=== PATIENT | male | born 1975 | race African-American/Black ===

== ENCOUNTER 2018-04-15 09:50 | Emergency (ER) | payer SELFPAY ==
[2018-04-15 10:06] VITALS: BP 129/80; PULSE 74; TEMP 98.5; BMI 27.3
--- NOTE | 2018-04-15 11:15 | PDOC ---
History of Present Illness - General Chief Complaint: Pain, Acute Stated Complaint: LT ARM NUMBNESS Time Seen by Provider: 04/15/18 10:47 History Source: Patient Exam Limitations: No Limitations - History of Present Illness Initial Comments: 04/15/18 11:17 Patient came for evaluation of intermittent left arm pain and some numbness. States onset was a proximally 2-3 months ago and has progressively worsened since that time. States goes to the gym and performs heavy lifting/pushups and pull ups and wonders if he may have hurt his shoulder/arm at the gym. 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 Patient denies any known injury but has had an increase in exercise. Denies fever, denies any chest pain , palpitations, history of cardiac disease. Denies any respiratory or GI illness. Has used ibuprofen with some intermittent resolved. Pain Location: reports: back, neck, upper extremity (left arm) Modifying Factors: improves with: None Loss of Consciousness: no loss of consciousness Associated Symptoms (Fall): denies symptoms Past History - Travel Traveled outside of the country in the last 30 days: No Close contact w/someone who was outside of country & ill: No - Past Medical History Allergies/Adverse Reactions: Allergies Allergy/AdvReac Type Severity Reaction Status Date / Time No Known Allergies Allergy Verified 04/15/18 10:08 Home Medications: Ambulatory Orders Cyclobenzaprine HCl 10 mg PO Q8H PRN #14 tablet 04/15/18 Naproxen [Naprosyn -] 500 mg PO BID #30 tablet 04/15/18 COPD: No - Immunization History Immunization Up to Date: Yes - Suicide/Smoking/Psychosocial Hx Smoking History: Never smoked Hx Alcohol Use: No Drug/Substance Use Hx: Yes Review of Systems - Review of Systems Able to Perform ROS?: Yes Is the patient limited Togolese proficient: Yes Constitutional: Yes: Symptoms Reported, Malaise Respiratory: Yes: See HPI. No: Symptoms reported Musculoskeletal: Yes: Symptoms Reported, See HPI, Joint Swelling, Muscle Pain. No: Muscle Weakness Integumentary: Yes: See HPI. No: Symptoms Reported, Bruising All Other Systems: Reviewed and Negative *Physical Exam - Vital Signs Last Vital Signs Temp Pulse Resp BP Pulse Ox 98.5 F 74 16 129/80 96 04/15/18 10:04 04/15/18 10:04 04/15/18 10:04 04/15/18 10:04 04/15/18 10:04 - Physical Exam General Appearance: Yes: Nourished, Appropriately Dressed HEENT: positive: LETY, Normal ENT Inspection, TMs Normal, Pharynx Normal Neck: positive: Supple, Other (patient left arm pain reproduced with deep palpation of left aspect of trapezius musculature at scaphoid wearing. Has strong abduction and forward flexion against resistance which Apter contraction and relaxation of those muscle groups reproduces the pain to his arm again. Has strong grasp, flexion and extension of fingers, neurovascular intact to hand). negative: Tender, Tender midline Respiratory/Chest: positive: Lungs Clear, Normal Breath Sounds. negative: Chest Tender Gastrointestinal/Abdominal: positive: Soft. negative: Tender Extremity: positive: Normal Capillary Refill, Normal Inspection, Normal Range of Motion. 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 NML intact, Fully Oriented, Alert, Normal Mood/ Affect, Normal Response, Motor Strength 5/5 Moderate Sedation - Procedure Monitoring Vital Signs: Procedure Monitoring Vital Signs Temperature 98.5 F 04/15/18 10:04 Pulse Rate 74 04/15/18 10:04 Respiratory Rate 16 04/15/18 10:04 Blood Pressure 129/80 04/15/18 10:04 O2 Sat by Pulse Oximetry (%) 96 04/15/18 10:04 ED Treatment Course - RADIOLOGY Radiology Studies Ordered: Category Date Time Status SPINE-CERVICAL [RAD] Stat Radiology 04/15/18 11:05 Ordered Progress Note - Progress Note Progress Note: Cervical muscle tension with radiculopathy *DC/Admit/Observation/Transfer Diagnosis at time of Disposition: Radiculopathy of arm - Discharge Dispostion Disposition: HOME Condition at time of disposition: Stable Decision to Admit order: No - Prescriptions Prescriptions: Cyclobenzaprine HCl 10 mg PO Q8H PRN #14 tablet PRN Reason: spasm Naproxen [Naprosyn -] 500 mg PO BID #30 tablet - Referrals - Patient Instructions Printed Discharge Instructions: DI for Cervical Radiculopathy Additional Instructions: Rest, ice to area on and off for 15 minutes 4-6 times a day Avoid heavy lifting or exercise until pain and swelling is resolved or until further directed Keep area highly elevated to reduce swelling Followup with orthopedist in one to 2 days if not improving, if significantly improved may wait one week for followup with orthopedist Follow-up with neurologist if symptoms persist or worsen May use ibuprofen 2-200 mg tablets every 6 hours as needed for pain Cyclobenzaprine 110 milligrams tablet every 8 hours as needed for spasm , understanding whelming dizzy and sleepy - Post Discharge Activity Forms/Work/School Notes: Back to Work
== END 2018-04-15 11:35 | disposition home or self-care (01) ==
LOC: JERFT 09:50
DX: M54.12 Radiculopathy, cervical region (principal)
CPT/HCPCS: 72050-TC-FY; 99281-25

== ENCOUNTER 2018-10-23 01:34 | Emergency (ER) | payer OTHER ==
--- NOTE | 2018-10-23 02:03 | PDOC ---
History of Present Illness - General Stated Complaint: ARM INJURY Time Seen by Provider: 10/23/18 02:02 Past History - Past Medical History Allergies/Adverse Reactions: Allergies Allergy/AdvReac Type Severity Reaction Status Date / Time No Known Allergies Allergy Verified 10/23/18 02:47 Home Medications: Ambulatory Orders Cyclobenzaprine HCl 10 mg PO Q8H PRN #14 tablet 04/15/18 Naproxen [Naprosyn -] 500 mg PO BID #30 tablet 04/15/18 Cyclobenzaprine HCl [Flexeril -] 10 mg PO TID #21 tablet 10/23/18 Ibuprofen [Motrin -] 600 mg PO QID PRN #28 tablet 10/23/18 Lidocaine 5% Patch [Lidoderm -] 1 patch TP DAILY #7 patch 10/23/18 COPD: No - Immunization History Immunization Up to Date: Yes - Suicide/Smoking/Psychosocial Hx Smoking History: Never smoked Hx Alcohol Use: No Drug/Substance Use Hx: Yes Medical Decision Making - Medical Decision Making HPI: 43yo M with PMH of asthma presenting with RUE pain. 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 His fellow employee helped get the piano off his arm. Patient endorses pain in his right arm most focal to the elbow and forearm. He has swelling in the area as well. Anytime he moves his arm he feels a shooting pain in his proximal forearm. Has not taken anything for pain. Never injured that arm before. Never seen an life skills specialist. No fevers, chills, chest pain, or shortness of breath. PCP: does not remember the name ROS: Constitutional: no fever, no chills HEENT: no throat pain, no dysphagia Cardiovascular: no chest pain, no palpitations Respiratory: no cough, no shortness of breath Gastrointestinal: no abdominal pain, no nausea Genitourinary: no dysuria, no frequency Musculoskeletal: +R. arm pain, no L. arm pain Skin: no rash, no itching Neurologic: no headache, no weakness PE: General: Awake, alert, and fully oriented, in no acute distress Head: No signs of trauma Eyes: EOMI, sclera anicteric ENT: Moist mucus membranes Neck: Normal ROM, supple Lungs: Lungs clear, Normal breath sounds Cardio: Regular rhythm, S1 and S2 present Abdomen: Soft, nontender. No guarding, no rebound, no masses Extremities: L. arm: normal, distal pulse present 5/5 strength R. arm: pain upon passive and active flexion/extension of the elbow, pain upon pronation>supination, no bony deformity, mild swelling of forearm noted, no breaks in skin, distal pulse present; equal sensation when compared to Left arm ; 3/5 strength limited by pain BLE: normal, distal pulse present, 5/5 strength Normal range of motion, Distal pulses present SKIN: Warm, Dry, normal turgor Neurologic: Cranial nerves II through XII grossly intact. Normal speech ED Courses/MDM: DDX including but not limited to fracture, break, dislocation, tendon injury, ligament injury, muscle tear Flexeril Toradol Lidocaine patch Ice pack Radiographs of RUE: forearm, elbow, humerus, shoulder Radiographs without acute pathology, my impression Placed Fausto wrap on elbow Arm placed in sling Patient given instructions on R.I.C.E Discharged with orthopedic referral *DC/Admit/Observation/Transfer Diagnosis at time of Disposition: Right arm pain - Discharge Dispostion Disposition: HOME Condition at time of disposition: Stable - Prescriptions Prescriptions: Cyclobenzaprine HCl [Flexeril -] 10 mg PO TID #21 tablet Ibuprofen [Motrin -] 600 mg PO QID PRN #28 tablet PRN Reason: Pain Lidocaine 5% Patch [Lidoderm -] 1 patch TP DAILY #7 patch - Referrals Referrals: Glynn Manning DO [Staff Physician] - - Patient Instructions Printed Discharge Instructions: How To Perform RICE (Rest, Ice, Compress, Elevate), DI for Arm Pain Additional Instructions: You came into the ED for right arm pain. We took x-rays which did not show acute pathology. Prescriptions sent to your pharmacy. Take as instructed. You can take [id number] aleve or tylenol for pain. Follow the instructions on the medication bottle. Practice R.I.C.E: rest, ice, compression, elevation. A handout has been included in your paperwork with information about this. We have referred you to an orthopedist. Call and make an appointment if your pain does not improve within 72 hours. Your workup is not complete until you do so. Follow up with your primary care doctor within 72 hours to discuss this ED visit and to further assess your symptoms. Call and make an appointment. Your workup is not complete until you do so. Immediate medical attention is required if you experience: any focal numbness or weakness, coldness in your limb, or any new or concerning symptoms. If you think you are having an emergency, call for emergency medical services or present to the emergency department right away. - Post Discharge Activity Forms/Work/School Notes: Back to Work
[2018-10-23] MEDS ORDERED: KETOROLAC TROMETHAMINE 30 MG/1 ML VIAL IM ONE (02:31)
[2018-10-23] MEDS ORDERED: CYCLOBENZAPRINE HCL 10 MG TABLET (FP) PO ONE (02:31)
[2018-10-23] MEDS ORDERED: LIDOCAINE 5% TOPICAL PATCH TP ONE (02:31)
[2018-10-23] MEDS ORDERED: CYCLOBENZAPRINE HCL 10 MG TABLET (FP) ONE (02:42)
[2018-10-23] MEDS ORDERED: KETOROLAC TROMETHAMINE 30 MG/1 ML VIAL ONE (02:43)
[2018-10-23] MEDS ORDERED: LIDOCAINE 5% TOPICAL PATCH ONE (02:43)
--- NOTE | 2018-10-23 02:46 | PDOC ---
Attending Attestation - Resident Resident Name: Melida Patrick - ED Attending Attestation I have performed the following: I have examined & evaluated the patient, The case was reviewed & discussed with the resident, I agree w/resident's findings & plan - HPI HPI: 10/23/18 03:48 Pt had a piano slip on his right arm. 10/23/18 05:47 No bicep deformity and no forearm deformity. - Physicial Exam PE: 10/23/18 05:48 Pt is able to flex and extend his affected right arm. He is able to supinate and pronate. He has pain that runs along his tendons and muscles. He has no bleeding or bruising under his skin. Pt has no other complaints. Agree with residet exam. - Medical Decision Making 10/23/18 05:47 Home with nsaids and ice and sling and manuel wrap for comfort. Pt can follow with PMD and or with ortho as needed.
[2018-10-23 02:51] VITALS: BP 138/79; PULSE 76; TEMP 98.2; BMI 24.4
[2018-10-23] MEDS ORDERED: LIDOCAINE PATCH REMOVAL MC SCH (22:00)
== END 2018-10-23 03:50 | disposition home or self-care (01) ==
LOC: JER 01:34
PROC: 3E0233Z Introduction of Anti-inflammatory into Muscle, Percutaneous Approach (ICD-10-PCS; principal; 2018-10-23)
DX: M79.601 Pain in right arm (principal); J45.909 Unspecified asthma, uncomplicated; W20.8XXA Other cause of strike by thrown, projected or falling object, initial encounter; Y93.89 Activity, other specified; Y92.89 Other specified places as the place of occurrence of the external cause; Y99.0 Civilian activity done for income or pay
CPT/HCPCS: 73030-TC-RT-FY; 73060-TC-RT-FY; 73070-TC-RT-FY; 73090-TC-RT-FY; 99282-25

== ENCOUNTER 2019-11-25 09:31 | Emergency (ER) | payer OTHER ==
[2019-11-25 09:36] VITALS: BP 148/80; PULSE 81; TEMP 98.2; BMI 28.8
--- NOTE | 2019-11-25 09:49 | PDOC ---
History of Present Illness - General Chief Complaint: Rash Stated Complaint: INSECT BITE Time Seen by Provider: 11/25/19 09:37 History Source: Patient - History of Present Illness Timing/Duration: reports: week Location: reports: generalized Respiratory Risk Factors: reports: insect bite Past History - Medical History Allergies/Adverse Reactions: Allergies Allergy/AdvReac Type Severity Reaction Status Date / Time No Known Allergies Allergy Verified 11/25/19 09:33 Home Medications: Ambulatory Orders Cyclobenzaprine HCl 10 mg PO Q8H PRN #14 tablet 04/15/18 Naproxen [Naprosyn -] 500 mg PO BID #30 tablet 04/15/18 Cyclobenzaprine HCl [Flexeril -] 10 mg PO TID #21 tablet 10/23/18 Ibuprofen [Motrin -] 600 mg PO QID PRN #28 tablet 10/23/18 Lidocaine 5% Patch [Lidoderm -] 1 patch TP DAILY #7 patch 10/23/18 COPD: No - Immunization History Immunization Up to Date: Yes - Psycho-Social/Smoking History Smoking History: Current some day smoker Have you smoked in the past 12 months: No Number of Cigarettes Smoked Daily: 2 Information on smoking cessation initiated: No - Substance Abuse Hx (Audit-C & DAST Scrn) How often the patient has a drink containing alcohol: Never Score: In Men: 4 or > Positive; In Women: 3 or > Positive: 0 Screen Result (Pos requires Nsg. Audit-10AR): Negative In the last yr the pt used illegal drug/Rx for NonMed reason: No Score: Yes response is considered Positive: 0 Screen Result (Positive result requires Nsg. DAST-10): Negative Review of Systems - Review of Systems Constitutional: No: Fever ABD/GI: No: Nausea, Vomiting Integumentary: Yes: Pruritus, Rash Neurological: Yes: Headache. No: Dizziness *Physical Exam - Vital Signs Last Vital Signs Temp Pulse Resp BP Pulse Ox 98.2 F 81 18 148/80 99 11/25/19 09:34 11/25/19 09:34 11/25/19 09:34 11/25/19 09:34 11/25/19 09:34 - Physical Exam General Appearance: Yes: Apparent Distress. No: Appropriately Dressed HEENT: positive: Normal Voice Neck: positive: Supple Respiratory/Chest: negative: Respiratory Distress Integumentary: positive: Dry, Warm, Other (single pustule to lateral L lower leg) Neurologic: positive: Fully Oriented, Alert, Normal Mood/Affect, Motor Strength 5/5 Medical Decision Making - Medical Decision Making 11/25/19 09:42 44 yo M, no sig hx, here w/ complaint that he has been getting "insect bites all over my body" for the past week and concerned bites is making him sick as he developed vague POSADAS an chills few days ago that has since resolved but wanted to come get evaluated. Denies tick bite or recent hiking see exam Insect bites No e/o infection or other complications Pt well caden w/ exam only remarkable for pustule to L leg Dc w/ reassurance, OTC antihistamine as needed Discharge - Discharge Information Problems reviewed: Yes Clinical Impression/Diagnosis: Insect bite Qualifiers: Encounter type: initial encounter Site of insect bite: unspecified site Qualified Code(s): W57.XXXA - Bitten or stung by nonvenomous insect and other nonvenomous arthropods, initial encounter Condition: Good Disposition: HOME - Follow up/Referral - Patient Discharge Instructions Patient Printed Discharge Instructions: DI for Insect Bites and Stings Additional Instructions: Apply topical Benadryl to site of itch - Post Discharge Activity
== END 2019-11-25 10:00 | disposition home or self-care (01) ==
LOC: JERFT 09:31
DX: S80.862A Insect bite (nonvenomous), left lower leg, initial encounter (principal)
CPT/HCPCS: 99283-25

== ENCOUNTER 2020-05-25 07:38 | Emergency (ER) | payer OTHER ==
[2020-05-25 07:54] VITALS: TEMP 98.5; BMI 27.7
[2020-05-25] MEDS ORDERED: DEXAMETHASONE SOD PHOSPHATE 10 MG/1 ML VIAL IM ONE (08:24)
[2020-05-25] MEDS ORDERED: ALBUTEROL SO4 2.5/IPRATROPIUM 0.5 INH SOL 3 ML VIAL.NEB. NEB ONE ×3 (08:24→08:30)
[2020-05-25] MEDS ORDERED: DEXAMETHASONE SOD PHOSPHATE 10 MG/1 ML VIAL ONE (08:26)
[2020-05-25 09:18] VITALS: BP 150/90; PULSE 76
== END 2020-05-25 09:42 | disposition home or self-care (01) ==
LOC: JCOVINFU 07:38
PROC: 3E0F7GC Introduction of Other Therapeutic Substance into Respiratory Tract, Via Natural or Artificial Opening (ICD-10-PCS; principal; 2020-05-25)
PROC: 3E0233Z Introduction of Anti-inflammatory into Muscle, Percutaneous Approach (ICD-10-PCS; 2020-05-25)
DX: J45.901 Unspecified asthma with (acute) exacerbation (principal)
CPT/HCPCS: 71046-TC-FY; 87804; 99284-25; C9803; J1100; U0003